=== PATIENT | female | born 1955 | race Caucasian/White ===

== ENCOUNTER 2017-08-27 08:26 | Outpatient (CLI) | payer OTHER ==
[~2017-08-27 08:26] MED LIST: PERCOCET 5/3251 TAB PO
== END 2017-08-27 08:39 | disposition home or self-care (01) ==
LOC: LAB 08:26
DX: Z80.3 Family history of malignant neoplasm of breast (principal); D69.2 Other nonthrombocytopenic purpura; I10 Essential (primary) hypertension; E03.8 Other specified hypothyroidism; E78.2 Mixed hyperlipidemia; M79.7 Fibromyalgia; G62.9 Polyneuropathy, unspecified; D50.8 Other iron deficiency anemias; D51.8 Other vitamin B12 deficiency anemias; E06.3 Autoimmune thyroiditis; D51.0 Vitamin B12 deficiency anemia due to intrinsic factor deficiency; D51.1 Vitamin B12 deficiency anemia due to selective vitamin B12 malabsorption with proteinuria

== ENCOUNTER 2018-02-26 10:30 | Inpatient (IN) | payer OTHER ==
[~2018-02-26] VITALS: Ht 160 cm; Wt 111.6 kg
[2018-02-26] MEDS ORDERED: GABAPENTIN800 MG PO (14:00)
[2018-02-26] MEDS ORDERED: METFORMIN HCL1000 M1 PO (14:00)
[2018-02-26] MEDS ORDERED: PROCARDIA PO (14:01)
[2018-02-26] MEDS ORDERED: GLIPIZIDE ER5 MG PO (14:01)
[2018-02-26] MEDS ORDERED: ZOCOR20 MG PO (14:02)
[2018-02-26] MEDS ORDERED: LOSARTAN-HCTZ1 EAC2 PO (14:02)
[2018-02-26] MEDS ORDERED: EZETIMIBE PO (14:02)
[2018-02-26] MEDS ORDERED: CYMBALTA60 MG PO (14:03)
[2018-02-26] MEDS ORDERED: JANUVIA50 MG PO (14:03)
[2018-02-26] MEDS ORDERED: LYRICA PO (14:04)
[2018-02-26] MEDS ORDERED: VIT D (14:04)
[2018-02-26] MEDS ORDERED: MIRAPEX0.25 MG PO (14:04)
[2018-02-26] MEDS ORDERED: PODIAPN CAPSUL1 EACH PO (14:05)
[2018-02-26] MEDS ORDERED: ULTRAM50 MG PO (14:05)
[2018-03-05] MEDS ORDERED: CURCUMIN1 GM (11:28)
[2018-03-05] MEDS ORDERED: GINGER ROOT1 GM (11:28)
== END 2018-03-07 15:50 | DRG 470 ==
LOC: O/R 03-04 09:32 → SURH 03-04 09:32 → RECOVERY 03-04 10:00 → SURH 03-04 21:38
PROVIDERS: Orthopaedic Surgery
PROC: 3E0F7GC Introduction of Other Therapeutic Substance into Respiratory Tract, Via Natural or Artificial Opening (ICD-10-PCS; 2018-03-04)
PROC: 0SRB0JZ Replacement of Left Hip Joint with Synthetic Substitute, Open Approach (ICD-10-PCS; principal; 2018-03-04 10:00)
DX: M16.12 Unilateral primary osteoarthritis, left hip (principal); D62 Acute posthemorrhagic anemia; I10 Essential (primary) hypertension; G47.33 Obstructive sleep apnea (adult) (pediatric); J45.20 Mild intermittent asthma, uncomplicated; E11.9 Type 2 diabetes mellitus without complications; E03.8 Other specified hypothyroidism; D69.59 Other secondary thrombocytopenia

== ENCOUNTER 2020-01-16 11:38 | Outpatient (CLI) | payer OTHER ==
[~2020-01-16 11:38] MED LIST changes: +CURCUMIN1 GM; +CYMBALTA60 MG PO; +EZETIMIBE PO; +GABAPENTIN800 MG PO; +GINGER ROOT1 GM; +GLIPIZIDE ER5 MG PO; +JANUVIA50 MG PO; +LOSARTAN-HCTZ1 EAC2 PO; +LYRICA PO; +METFORMIN HCL1000 M1 PO; +MIRAPEX0.25 MG PO; +PODIAPN CAPSUL1 EACH PO; +PROCARDIA PO; +ULTRAM50 MG PO; +VIT D; +ZOCOR20 MG PO
== END 2020-01-16 15:43 | disposition home or self-care (01) ==
LOC: LAB 11:38
PROVIDERS: ATTEND Internal Medicine Hematology & Oncology
DX: D50.8 Other iron deficiency anemias (principal); I10 Essential (primary) hypertension; D55.0 Anemia due to glucose-6-phosphate dehydrogenase [G6PD] deficiency; D63.1 Anemia in chronic kidney disease; D68.8 Other specified coagulation defects; D69.1 Qualitative platelet defects; C50.919 Malignant neoplasm of unspecified site of unspecified female breast; R97.8 Other abnormal tumor markers; R19.5 Other fecal abnormalities; Z80.3 Family history of malignant neoplasm of breast; D51.3 Other dietary vitamin B12 deficiency anemia; D69.2 Other nonthrombocytopenic purpura; G62.89 Other specified polyneuropathies; D51.1 Vitamin B12 deficiency anemia due to selective vitamin B12 malabsorption with proteinuria; M79.7 Fibromyalgia; E03.8 Other specified hypothyroidism

== ENCOUNTER 2020-03-11 09:33 | Outpatient (CLI) | payer OTHER | END 2020-03-11 09:40 | disposition home or self-care (01) | LOC: LAB 09:33 | PROVIDERS: ATTEND Internal Medicine Hematology & Oncology | DX: C25.9 Malignant neoplasm of pancreas, unspecified (principal); R97.8 Other abnormal tumor markers; C56.9 Malignant neoplasm of unspecified ovary; R97.1 Elevated cancer antigen 125 [CA 125]; R97.0 Elevated carcinoembryonic antigen [CEA]; N39.0 Urinary tract infection, site not specified; Z80.3 Family history of malignant neoplasm of breast; D50.8 Other iron deficiency anemias; D51.3 Other dietary vitamin B12 deficiency anemia; D69.2 Other nonthrombocytopenic purpura; D51.1 Vitamin B12 deficiency anemia due to selective vitamin B12 malabsorption with proteinuria; I10 Essential (primary) hypertension; E78.2 Mixed hyperlipidemia; M79.7 Fibromyalgia; E03.8 Other specified hypothyroidism ==

== ENCOUNTER 2020-04-01 09:53 | Outpatient (CLI) | payer OTHER | END 2020-04-01 09:58 | disposition home or self-care (01) | LOC: LAB 09:53 | PROVIDERS: ATTEND Internal Medicine Hematology & Oncology | DX: E78.49 Other hyperlipidemia (principal); D64.89 Other specified anemias; R10.84 Generalized abdominal pain; E11.9 Type 2 diabetes mellitus without complications; D50.8 Other iron deficiency anemias; I10 Essential (primary) hypertension; Z80.3 Family history of malignant neoplasm of breast; D51.3 Other dietary vitamin B12 deficiency anemia; D69.2 Other nonthrombocytopenic purpura; G62.89 Other specified polyneuropathies; D51.1 Vitamin B12 deficiency anemia due to selective vitamin B12 malabsorption with proteinuria; M79.7 Fibromyalgia; E03.8 Other specified hypothyroidism; R97.0 Elevated carcinoembryonic antigen [CEA] ==

== ENCOUNTER → 2020-04-11 | Outpatient (CLI) | payer OTHER | END | disposition home or self-care (01) | LOC: MRI 07:15 | PROVIDERS: ATTEND Internal Medicine Hematology & Oncology | DX: K74.69 Other cirrhosis of liver (principal); R16.1 Splenomegaly, not elsewhere classified; D50.8 Other iron deficiency anemias; D51.3 Other dietary vitamin B12 deficiency anemia; Z80.3 Family history of malignant neoplasm of breast; D69.2 Other nonthrombocytopenic purpura; G62.89 Other specified polyneuropathies; D51.1 Vitamin B12 deficiency anemia due to selective vitamin B12 malabsorption with proteinuria; I10 Essential (primary) hypertension; E78.2 Mixed hyperlipidemia; M79.7 Fibromyalgia; E03.8 Other specified hypothyroidism; R97.0 Elevated carcinoembryonic antigen [CEA] | CPT/HCPCS: 74183; A9575; 74182 ==

== ENCOUNTER → 2020-05-18 08:44 | Outpatient (CLI) | payer OTHER | END | disposition home or self-care (01) | LOC: LAB 08:44 | PROVIDERS: ATTEND Internal Medicine Geriatric Medicine | DX: D50.8 Other iron deficiency anemias (principal); E03.8 Other specified hypothyroidism; E78.2 Mixed hyperlipidemia; I11.9 Hypertensive heart disease without heart failure; E56.8 Deficiency of other vitamins; N39.0 Urinary tract infection, site not specified; Z12.11 Encounter for screening for malignant neoplasm of colon; E55.9 Vitamin D deficiency, unspecified; N19 Unspecified kidney failure; E11.9 Type 2 diabetes mellitus without complications; R80.8 Other proteinuria; C18.0 Malignant neoplasm of cecum; K92.1 Melena ==

== ENCOUNTER 2020-06-17 15:07 | Emergency (ER) | payer OTHER ==
[~2020-06-17] VITALS: Ht 160 cm; Wt 106.6 kg
[2020-06-17] MEDS ORDERED: PRAVASTATIN SOD40 MG PO (15:37)
[2020-06-17] MEDS ORDERED: PROTONIX40 MG PO (15:39)
[2020-06-17] MEDS ORDERED: PEPCID AC20 MG PO (15:39)
[2020-06-17] MEDS ORDERED: LYRICA150 MG PO (15:39)
[2020-06-17] MEDS ORDERED: LOSARTAN POTASS50 MG (15:39)
[2020-06-17] MEDS ORDERED: LEVOTHYROXINE25 MCG PO (15:40)
[2020-06-17] MEDS ORDERED: SINGULAIR 5MG5 MG (15:40)
[2020-06-17] MEDS ORDERED: NIFEDIPINE20 MG (15:41)
[2020-06-17] MEDS ORDERED: LANTUS SOL100 UNIT/1 (15:43)
== END 2020-06-17 21:44 | disposition home or self-care (01) ==
LOC: ER 15:07
DX: A90 Dengue fever [classical dengue] (principal); Z03.818 Encounter for observation for suspected exposure to other biological agents ruled out

== ENCOUNTER 2020-06-18 11:55 | Outpatient (CLI) | payer OTHER ==
[~2020-06-18 11:55] MED LIST changes: +LANTUS SOL100 UNIT/1; +LEVOTHYROXINE25 MCG PO; +LOSARTAN POTASS50 MG; +LYRICA150 MG PO; +NIFEDIPINE20 MG; +PEPCID AC20 MG PO; +PRAVASTATIN SOD40 MG PO; +PROTONIX40 MG PO; +SINGULAIR 5MG5 MG
== END 2020-06-18 12:05 | disposition home or self-care (01) ==
LOC: LAB 11:55
DX: K76.0 Fatty (change of) liver, not elsewhere classified (principal); A90 Dengue fever [classical dengue]; R74.01 Elevation of levels of liver transaminase levels; K76.6 Portal hypertension; K74.60 Unspecified cirrhosis of liver

== ENCOUNTER 2020-07-01 08:47 | Outpatient (CLI) | payer OTHER | END 2020-07-01 10:24 | disposition home or self-care (01) | LOC: NUCLEAR 08:47 | DX: T81.41XA Infection following a procedure, superficial incisional surgical site, initial encounter (principal); T84.84XA Pain due to internal orthopedic prosthetic devices, implants and grafts, initial encounter | CPT/HCPCS: 78315; A9503 ==

== ENCOUNTER 2020-07-01 09:45 | Outpatient (CLI) | payer OTHER | END 2020-07-01 09:53 | disposition HB | LOC: TOM 09:45 | DX: M21.752 Unequal limb length (acquired), left femur (principal) ==

== ENCOUNTER → 2020-07-29 | Outpatient (CLI) | payer OTHER | END | disposition home or self-care (01) | LOC: MAMO-SONO 10:45 | PROVIDERS: ATTEND Obstetrics & Gynecology | DX: N94.89 Other specified conditions associated with female genital organs and menstrual cycle (principal); N94.0 Mittelschmerz; R10.2 Pelvic and perineal pain ==

== ENCOUNTER 2020-08-02 07:44 | Outpatient (CLI) | payer OTHER | END 2020-08-02 07:50 | disposition home or self-care (01) | LOC: LAB 07:44 | PROVIDERS: ATTEND Internal Medicine Geriatric Medicine | DX: D50.8 Other iron deficiency anemias (principal); R79.89 Other specified abnormal findings of blood chemistry; I10 Essential (primary) hypertension; R74.02 Elevation of levels of lactic acid dehydrogenase [LDH]; K76.89 Other specified diseases of liver; D51.8 Other vitamin B12 deficiency anemias; C25.9 Malignant neoplasm of pancreas, unspecified; R97.8 Other abnormal tumor markers; R97.0 Elevated carcinoembryonic antigen [CEA]; R77.2 Abnormality of alphafetoprotein; Z80.3 Family history of malignant neoplasm of breast; D51.3 Other dietary vitamin B12 deficiency anemia; D69.2 Other nonthrombocytopenic purpura; D51.1 Vitamin B12 deficiency anemia due to selective vitamin B12 malabsorption with proteinuria; E78.2 Mixed hyperlipidemia; M79.7 Fibromyalgia; E03.8 Other specified hypothyroidism; T81.41XA Infection following a procedure, superficial incisional surgical site, initial encounter; C22.0 Liver cell carcinoma; I11.9 Hypertensive heart disease without heart failure; E56.8 Deficiency of other vitamins; N39.0 Urinary tract infection, site not specified; Z12.11 Encounter for screening for malignant neoplasm of colon; E55.9 Vitamin D deficiency, unspecified; N17.8 Other acute kidney failure; K92.1 Melena; C18.0 Malignant neoplasm of cecum; R80.8 Other proteinuria; E11.9 Type 2 diabetes mellitus without complications ==

== ENCOUNTER 2020-08-11 11:43 | Outpatient (CLI) | payer OTHER | END 2020-08-11 11:47 | disposition home or self-care (01) | LOC: LAB 11:43 | PROVIDERS: ATTEND Radiology Diagnostic Radiology | DX: N20.0 Calculus of kidney (principal) ==

== ENCOUNTER 2020-08-19 08:18 | Outpatient (CLI) | payer OTHER | END 2020-08-19 08:30 | disposition home or self-care (01) | LOC: RAD 08:18 → MRI 08:45 | PROVIDERS: ATTEND Obstetrics & Gynecology | DX: Z12.31 Encounter for screening mammogram for malignant neoplasm of breast (principal); Z87.898 Personal history of other specified conditions; N63.0 Unspecified lump in unspecified breast; C50.811 Malignant neoplasm of overlapping sites of right female breast; C50.812 Malignant neoplasm of overlapping sites of left female breast; N60.11 Diffuse cystic mastopathy of right breast; N60.12 Diffuse cystic mastopathy of left breast; N64.4 Mastodynia; N94.0 Mittelschmerz; R10.2 Pelvic and perineal pain; N94.89 Other specified conditions associated with female genital organs and menstrual cycle | CPT/HCPCS: 72197; 74183; 76641; 77067; A9575 ==

== ENCOUNTER 2020-10-18 10:57 | Outpatient (CLI) | payer OTHER | END 2020-10-18 10:59 | disposition home or self-care (01) | LOC: NUCLEAR 10:57 | DX: I73.9 Peripheral vascular disease, unspecified (principal); I82.409 Acute embolism and thrombosis of unspecified deep veins of unspecified lower extremity ==

== ENCOUNTER 2020-10-19 07:35 | Outpatient (CLI) | payer OTHER | END 2020-10-19 07:51 | disposition home or self-care (01) | LOC: SONOGRAMA 07:35 | PROVIDERS: ATTEND Internal Medicine Gastroenterology | DX: R74.01 Elevation of levels of liver transaminase levels (principal); K76.0 Fatty (change of) liver, not elsewhere classified; K76.6 Portal hypertension; K74.60 Unspecified cirrhosis of liver; I85.00 Esophageal varices without bleeding; M43.06 Spondylolysis, lumbar region; E11.40 Type 2 diabetes mellitus with diabetic neuropathy, unspecified; D47.2 Monoclonal gammopathy; E03.8 Other specified hypothyroidism; D51.0 Vitamin B12 deficiency anemia due to intrinsic factor deficiency; D51.8 Other vitamin B12 deficiency anemias; E83.42 Hypomagnesemia; G47.8 Other sleep disorders ==

== ENCOUNTER → 2020-10-19 08:53 | Outpatient (CLI) | payer OTHER | END | disposition home or self-care (01) | LOC: LAB 08:53 | DX: E11.65 Type 2 diabetes mellitus with hyperglycemia (principal); E78.2 Mixed hyperlipidemia; I10 Essential (primary) hypertension; C73 Malignant neoplasm of thyroid gland; E11.40 Type 2 diabetes mellitus with diabetic neuropathy, unspecified; D47.2 Monoclonal gammopathy; E03.8 Other specified hypothyroidism; D51.0 Vitamin B12 deficiency anemia due to intrinsic factor deficiency; D51.8 Other vitamin B12 deficiency anemias; E83.42 Hypomagnesemia; G72.89 Other specified myopathies; R74.01 Elevation of levels of liver transaminase levels; K76.0 Fatty (change of) liver, not elsewhere classified; K76.6 Portal hypertension; K74.60 Unspecified cirrhosis of liver; I85.00 Esophageal varices without bleeding ==

== ENCOUNTER 2020-10-19 11:03 | Outpatient (CLI) | payer OTHER | END 2020-10-19 11:04 | disposition home or self-care (01) | LOC: NUCLEAR 11:03 | DX: I73.9 Peripheral vascular disease, unspecified (principal); I82.409 Acute embolism and thrombosis of unspecified deep veins of unspecified lower extremity ==

== ENCOUNTER 2020-12-05 09:59 | Outpatient (CLI) | payer OTHER | END 2020-12-05 10:04 | disposition home or self-care (01) | LOC: MRI 09:59 | PROVIDERS: ATTEND Neuromusculoskeletal Medicine & OMM | DX: G30.9 Alzheimer's disease, unspecified (principal); I67.89 Other cerebrovascular disease; R41.3 Other amnesia | CPT/HCPCS: 70551 ==

== ENCOUNTER 2020-12-12 09:03 | Outpatient (CLI) | payer OTHER | END 2020-12-12 09:04 | disposition home or self-care (01) | LOC: LAB 09:03 → RAD 09:03 → LAB 09:04 | PROVIDERS: ATTEND Internal Medicine Geriatric Medicine | DX: D50.9 Iron deficiency anemia, unspecified (principal); M18.0 Bilateral primary osteoarthritis of first carpometacarpal joints; E03.9 Hypothyroidism, unspecified; E78.2 Mixed hyperlipidemia; I11.9 Hypertensive heart disease without heart failure; E56.8 Deficiency of other vitamins; N39.0 Urinary tract infection, site not specified; R19.5 Other fecal abnormalities; E55.9 Vitamin D deficiency, unspecified; R80.9 Proteinuria, unspecified; C18.9 Malignant neoplasm of colon, unspecified; K92.0 Hematemesis ==

== ENCOUNTER 2020-12-17 13:42 | Emergency (ER) | payer OTHER ==
[~2020-12-17] VITALS: Ht 160 cm; Wt 117.9 kg
[2020-12-17] MEDS ORDERED: GLIMEPIRIDE2 MG (14:16)
[2020-12-17] MEDS ORDERED: REFRESH OPTIVE10 ML (14:17)
[2020-12-17] MEDS ORDERED: OLOPATADINE H30.5 GM (14:17)
[2020-12-17] MEDS ORDERED: ATIVAN1 M1 (14:18)
[2020-12-17] MEDS ORDERED: PRAMIPEXOLE E2.25 MG (14:19)
[2020-12-17] MEDS ORDERED: TRULICITY1.5 MG/0.5 (14:19)
[2020-12-17] MEDS ORDERED: NORVASC10 MG (14:20)
[2020-12-17] MEDS ORDERED: XIGDUO XR 5 MG1 EAC1 (14:20)
[2020-12-17] MEDS ORDERED: BENICAR HCT 401 EACH (14:20)
== END 2020-12-17 20:53 | disposition home or self-care (01) ==
LOC: ER 13:42
DX: J45.998 Other asthma (principal); B34.9 Viral infection, unspecified; Z11.52 Encounter for screening for COVID-19

== ENCOUNTER 2020-12-20 02:53 | Emergency (ER) | payer OTHER ==
[~2020-12-20] VITALS: Ht 172.7 cm; Wt 117.9 kg
[~2020-12-20 02:53] MED LIST changes: +ATIVAN1 M1; +BENICAR HCT 401 EACH; +GLIMEPIRIDE2 MG; +NORVASC10 MG; +OLOPATADINE H30.5 GM; +PRAMIPEXOLE E2.25 MG; +REFRESH OPTIVE10 ML; +TRULICITY1.5 MG/0.5; +XIGDUO XR 5 MG1 EAC1
== END 2020-12-20 15:53 | disposition home or self-care (01) ==
LOC: ER 02:53
DX: R07.89 Other chest pain (principal); J45.998 Other asthma; J32.8 Other chronic sinusitis

== ENCOUNTER → 2021-01-10 07:32 | Outpatient (CLI) | payer OTHER | END | disposition home or self-care (01) | LOC: RAD 07:32 → LAB 07:32 | DX: M17.0 Bilateral primary osteoarthritis of knee (principal); M16.0 Bilateral primary osteoarthritis of hip; E11.65 Type 2 diabetes mellitus with hyperglycemia; E78.2 Mixed hyperlipidemia; I10 Essential (primary) hypertension ==

== ENCOUNTER 2021-04-06 09:26 | Outpatient (CLI) | payer OTHER | END 2021-04-06 14:20 | disposition home or self-care (01) | LOC: SONOGRAMA 09:26 | DX: R10.84 Generalized abdominal pain (principal); K70.30 Alcoholic cirrhosis of liver without ascites ==

== ENCOUNTER 2021-04-19 16:10 | Outpatient (CLI) | payer OTHER | END 2021-04-19 16:16 | disposition home or self-care (01) | LOC: RAD 16:10 | PROVIDERS: ATTEND Orthopaedic Surgery | DX: M75.121 Complete rotator cuff tear or rupture of right shoulder, not specified as traumatic (principal); M25.511 Pain in right shoulder ==

== ENCOUNTER → 2021-05-29 | Emergency (ER) | payer OTHER ==
[~2021-05-29] MED LIST changes: +PROAIR HFA8.5 GM IH
== END | disposition left against medical advice (07) ==
LOC: ER 21:58
DX: Z53.20 Procedure and treatment not carried out because of patient's decision for unspecified reasons (principal)

== ENCOUNTER 2021-06-27 08:34 | Outpatient (CLI) | payer OTHER | END 2021-06-27 15:00 | disposition home or self-care (01) | LOC: LAB 08:34 | PROVIDERS: ATTEND Internal Medicine Hematology & Oncology | DX: D68.8 Other specified coagulation defects (principal); D69.1 Qualitative platelet defects; Z80.3 Family history of malignant neoplasm of breast; D50.8 Other iron deficiency anemias; D51.3 Other dietary vitamin B12 deficiency anemia; D69.2 Other nonthrombocytopenic purpura; K74.69 Other cirrhosis of liver; G62.89 Other specified polyneuropathies; D51.1 Vitamin B12 deficiency anemia due to selective vitamin B12 malabsorption with proteinuria; I10 Essential (primary) hypertension; E78.2 Mixed hyperlipidemia; M79.7 Fibromyalgia; E03.8 Other specified hypothyroidism; R97.0 Elevated carcinoembryonic antigen [CEA] ==

== ENCOUNTER 2021-06-29 06:43 | Day surgery (SDC) | payer OTHER | END 2021-06-29 19:30 | disposition home or self-care (01) | LOC: CIR.AMB 06:43 | PROVIDERS: ATTEND Orthopaedic Surgery | DX: M75.121 Complete rotator cuff tear or rupture of right shoulder, not specified as traumatic (principal); M75.21 Bicipital tendinitis, right shoulder; Z20.822 Contact with and (suspected) exposure to COVID-19 ==

== ENCOUNTER 2021-07-04 08:14 | Outpatient (CLI) | payer OTHER | END 2021-07-04 15:00 | disposition home or self-care (01) | LOC: LAB 08:14 | PROVIDERS: ATTEND Internal Medicine Hematology & Oncology | DX: D50.8 Other iron deficiency anemias (principal); D51.3 Other dietary vitamin B12 deficiency anemia; D69.2 Other nonthrombocytopenic purpura; K74.69 Other cirrhosis of liver; G62.89 Other specified polyneuropathies; D51.1 Vitamin B12 deficiency anemia due to selective vitamin B12 malabsorption with proteinuria; I10 Essential (primary) hypertension; E78.2 Mixed hyperlipidemia; M79.7 Fibromyalgia; E03.8 Other specified hypothyroidism; R97.0 Elevated carcinoembryonic antigen [CEA]; Z80.3 Family history of malignant neoplasm of breast; R79.89 Other specified abnormal findings of blood chemistry; R74.02 Elevation of levels of lactic acid dehydrogenase [LDH]; K76.89 Other specified diseases of liver; D51.8 Other vitamin B12 deficiency anemias; C25.8 Malignant neoplasm of overlapping sites of pancreas; R97.8 Other abnormal tumor markers; R77.2 Abnormality of alphafetoprotein ==

== ENCOUNTER 2021-10-31 12:35 | Outpatient (CLI) | payer OTHER | END 2021-10-31 12:52 | disposition home or self-care (01) | LOC: MAMO-SONO 12:35 | PROVIDERS: ATTEND Obstetrics & Gynecology | DX: N63.0 Unspecified lump in unspecified breast (principal); N64.59 Other signs and symptoms in breast; N64.9 Disorder of breast, unspecified; R10.2 Pelvic and perineal pain ==

== ENCOUNTER 2022-02-26 10:27 | Outpatient (CLI) | payer OTHER ==
[~2022-02-26 10:27] MED LIST changes: +BENICAR40 MG PO; +FOLIVANE-F CAP1 EACH PO; +GLIPIZIDE XL5 MG PO; +HORIZANT600 MG PO; +LEVOFLOXACIN500 MG PO; +LYRICA200 MG PO; +NORVASC10 MG PO; +PRAMIPEXOLE E2.25 MG PO; +PYRIDIUM200 MG PO; +SINGULAIR10 MG PO; +ZETIA10 MG PO
== END 2022-02-26 10:34 | disposition home or self-care (01) ==
LOC: RAD 10:27
PROVIDERS: ATTEND Orthopaedic Surgery
DX: M54.59 Other low back pain (principal)

== ENCOUNTER 2022-02-26 11:43 | Outpatient (CLI) | payer OTHER | END 2022-02-26 11:44 | disposition home or self-care (01) | LOC: NUCLEAR 11:43 | PROVIDERS: ATTEND Internal Medicine Rheumatology | DX: M81.0 Age-related osteoporosis without current pathological fracture (principal); Z88.0 Allergy status to penicillin; Z88.6 Allergy status to analgesic agent; Z91.018 Allergy to other foods ==

== ENCOUNTER 2022-04-06 07:45 | Outpatient (CLI) | payer OTHER | END 2022-04-06 07:53 | disposition home or self-care (01) | LOC: LAB 07:45 | PROVIDERS: ATTEND Internal Medicine Hematology & Oncology | DX: D50.8 Other iron deficiency anemias (principal); R79.9 Abnormal finding of blood chemistry, unspecified; R74.02 Elevation of levels of lactic acid dehydrogenase [LDH]; K76.89 Other specified diseases of liver; D51.8 Other vitamin B12 deficiency anemias; D68.8 Other specified coagulation defects; D69.1 Qualitative platelet defects; C25.9 Malignant neoplasm of pancreas, unspecified; R97.8 Other abnormal tumor markers; R77.2 Abnormality of alphafetoprotein; Z80.3 Family history of malignant neoplasm of breast; D51.3 Other dietary vitamin B12 deficiency anemia; D69.2 Other nonthrombocytopenic purpura; K74.69 Other cirrhosis of liver; G62.9 Polyneuropathy, unspecified; D51.1 Vitamin B12 deficiency anemia due to selective vitamin B12 malabsorption with proteinuria; E78.2 Mixed hyperlipidemia; M79.7 Fibromyalgia; E03.8 Other specified hypothyroidism; R97.0 Elevated carcinoembryonic antigen [CEA]; E11.21 Type 2 diabetes mellitus with diabetic nephropathy; R80.9 Proteinuria, unspecified; D50.9 Iron deficiency anemia, unspecified; E03.9 Hypothyroidism, unspecified; I11.9 Hypertensive heart disease without heart failure; E56.8 Deficiency of other vitamins; N39.0 Urinary tract infection, site not specified; R19.5 Other fecal abnormalities; E55.9 Vitamin D deficiency, unspecified; N18.2 Chronic kidney disease, stage 2 (mild); Z12.11 Encounter for screening for malignant neoplasm of colon ==

== ENCOUNTER 2022-05-01 08:55 | Outpatient (CLI) | payer OTHER | END 2022-05-01 08:56 | disposition home or self-care (01) | LOC: LAB 08:55 | DX: R79.89 Other specified abnormal findings of blood chemistry (principal) ==

== ENCOUNTER 2022-05-01 09:27 | Outpatient (CLI) | payer OTHER | END 2022-05-01 09:37 | disposition home or self-care (01) | LOC: SONOGRAMA 09:27 | DX: K70.30 Alcoholic cirrhosis of liver without ascites (principal) ==

== ENCOUNTER 2022-05-04 07:33 | Outpatient (CLI) | payer OTHER | END 2022-05-04 07:35 | disposition home or self-care (01) | LOC: LAB 07:33 | PROVIDERS: ATTEND Internal Medicine Geriatric Medicine | DX: K76.9 Liver disease, unspecified (principal); J06.9 Acute upper respiratory infection, unspecified; D69.6 Thrombocytopenia, unspecified; D72.819 Decreased white blood cell count, unspecified ==

== ENCOUNTER 2022-10-09 08:37 | Outpatient (CLI) | payer OTHER | END 2022-10-09 08:38 | disposition home or self-care (01) | LOC: LAB 08:37 | PROVIDERS: ATTEND Internal Medicine Geriatric Medicine | DX: D50.9 Iron deficiency anemia, unspecified (principal); E03.9 Hypothyroidism, unspecified; E78.2 Mixed hyperlipidemia; I11.9 Hypertensive heart disease without heart failure; E56.8 Deficiency of other vitamins; Z12.11 Encounter for screening for malignant neoplasm of colon; R19.5 Other fecal abnormalities; E55.9 Vitamin D deficiency, unspecified; R80.9 Proteinuria, unspecified; D50.8 Other iron deficiency anemias; R79.9 Abnormal finding of blood chemistry, unspecified; R74.02 Elevation of levels of lactic acid dehydrogenase [LDH]; K76.89 Other specified diseases of liver; D68.8 Other specified coagulation defects; D69.1 Qualitative platelet defects; C25.9 Malignant neoplasm of pancreas, unspecified; R97.8 Other abnormal tumor markers; R97.0 Elevated carcinoembryonic antigen [CEA]; R77.2 Abnormality of alphafetoprotein; Z80.3 Family history of malignant neoplasm of breast; D51.3 Other dietary vitamin B12 deficiency anemia; D69.2 Other nonthrombocytopenic purpura; K74.69 Other cirrhosis of liver; G62.9 Polyneuropathy, unspecified; D51.1 Vitamin B12 deficiency anemia due to selective vitamin B12 malabsorption with proteinuria; M79.7 Fibromyalgia; E03.8 Other specified hypothyroidism; N18.2 Chronic kidney disease, stage 2 (mild); E11.22 Type 2 diabetes mellitus with diabetic chronic kidney disease ==

== ENCOUNTER 2022-10-20 15:56 | Emergency (ER) | payer OTHER ==
[~2022-10-20] VITALS: Ht 160 cm; Wt 122.5 kg
== END 2022-10-20 17:20 | disposition home or self-care (01) ==
LOC: ER 15:56
DX: U07.1 COVID-19 (principal); Z88.0 Allergy status to penicillin; Z88.6 Allergy status to analgesic agent; Z91.018 Allergy to other foods

== ENCOUNTER 2022-11-08 08:12 | Outpatient (CLI) | payer OTHER | END 2022-11-08 08:14 | disposition home or self-care (01) | LOC: LAB 08:12 | PROVIDERS: ATTEND Internal Medicine Geriatric Medicine | DX: N39.0 Urinary tract infection, site not specified (principal) ==

== ENCOUNTER → 2022-11-08 | Outpatient (CLI) | payer OTHER | END | disposition home or self-care (01) | LOC: MAMO-SONO 08:46 | PROVIDERS: ATTEND Obstetrics & Gynecology | DX: N94.0 Mittelschmerz (principal); R10.2 Pelvic and perineal pain; N94.89 Other specified conditions associated with female genital organs and menstrual cycle; N63.0 Unspecified lump in unspecified breast; N64.59 Other signs and symptoms in breast; N64.9 Disorder of breast, unspecified; Z12.31 Encounter for screening mammogram for malignant neoplasm of breast ==

== ENCOUNTER → 2023-01-19 07:55 | Outpatient (CLI) | payer OTHER | END | disposition home or self-care (01) | LOC: LAB 07:55 | PROVIDERS: ATTEND Internal Medicine Geriatric Medicine | DX: D50.9 Iron deficiency anemia, unspecified (principal); E03.9 Hypothyroidism, unspecified; E78.2 Mixed hyperlipidemia; I11.9 Hypertensive heart disease without heart failure; E56.8 Deficiency of other vitamins; N39.0 Urinary tract infection, site not specified; Z12.11 Encounter for screening for malignant neoplasm of colon; R19.5 Other fecal abnormalities; E55.9 Vitamin D deficiency, unspecified; N19 Unspecified kidney failure; E11.9 Type 2 diabetes mellitus without complications ==

== ENCOUNTER 2023-01-23 08:01 | Outpatient (CLI) | payer OTHER | END 2023-01-23 08:03 | disposition home or self-care (01) | LOC: LAB 08:01 | PROVIDERS: ATTEND Internal Medicine Hematology & Oncology | DX: D64.9 Anemia, unspecified (principal); N39.0 Urinary tract infection, site not specified; R10.9 Unspecified abdominal pain; Z79.01 Long term (current) use of anticoagulants; D50.8 Other iron deficiency anemias; D69.6 Thrombocytopenia, unspecified; D68.8 Other specified coagulation defects; D69.1 Qualitative platelet defects; I10 Essential (primary) hypertension; Z80.3 Family history of malignant neoplasm of breast; D51.3 Other dietary vitamin B12 deficiency anemia; D69.2 Other nonthrombocytopenic purpura; K74.69 Other cirrhosis of liver; G62.9 Polyneuropathy, unspecified; D51.1 Vitamin B12 deficiency anemia due to selective vitamin B12 malabsorption with proteinuria; E78.2 Mixed hyperlipidemia; M79.7 Fibromyalgia; E03.8 Other specified hypothyroidism; R97.0 Elevated carcinoembryonic antigen [CEA] ==

== ENCOUNTER 2023-01-23 08:37 | Outpatient (CLI) | payer OTHER | END 2023-01-23 08:41 | disposition home or self-care (01) | LOC: RAD 08:37 | PROVIDERS: ATTEND Internal Medicine | DX: Z01.811 Encounter for preprocedural respiratory examination (principal) ==

== ENCOUNTER 2023-04-20 08:27 | Outpatient (CLI) | payer OTHER ==
[2023-04-20 10:18] LABS: URINE APPEARANCE Clear; URINE BILIRRUBIN Negative (NEGATIVE); URINE BLOOD Negative; URINE COLOR Yellow; URINE GLUCOSE Negative (NEGATIVE); URINE LEUKOCYTE Trace; URINE NITRATE Negative; URINE PROTEIN Negative (NEGATIVE)
[2023-04-20 10:48] LABS: URINE BACTERIA FEW; URINE MUCUS SCANT
[2023-04-20 10:49] LABS: URINE RBC 0-3 /HPF
[2023-04-20 10:57] LABS: HEMATOCRIT 36.3 % (36.0-45.00); HEMOGLOBIN 12.3 g/dL (12.0-15.00); MEAN CELL VOLUME 90.6 fL (80.00-100.00); MEAN CORPUSCULAR HEMOGLOBIN 30.7 pg (27.00-32.0); MEAN CORPUSCULAR HGB CONC 33.9 g/dl (32.0-36.0); RED CELL DISTRIBUTION WIDTH 14.5 % (11.5-14.5)
[2023-04-20 11:34] LABS: % SATURACION 29.5 % (15-50); ALBUMIN 3.3 gm/dL (3.4-5.0); BILIRUBIN TOTAL 1.01 mg/dL (0.3-1.2); CALCIUM 9.1 mg/dL (8.5-10.1); CHOL HDL RATIO 2.1 (0-5.0); CREATININE SERUM 1.05 mg/dL (0.55-1.02); FERRITIN 83.2 NG/ML (8-252); GFR 52.27; GLOBULINA 2.9 G/DL (2.4-3.5); POTASSIUM 4.01 mEq/L (3.5-5.1); TOTAL PROTEIN 6.2 gm/dL (6.4-8.2); TSH 1.3 uIU/mL (0.358-3.74)
[2023-04-20 12:23] LABS: COL EPI 98 SECONDS (82-175)
[2023-04-20 13:05] LABS: PLATELET COUNT 55 K/uL (150-450)
[2023-04-22 15:20] LABS: FOLIC ACID 19.8 ng/ml (4.78-20); VITAMIN D3 25 HYDROXY 42.45 ng/ml (30-120)
== END 2023-04-20 08:31 | disposition home or self-care (01) ==
LOC: LAB 08:27
PROVIDERS: ATTEND Internal Medicine Geriatric Medicine
DX: D50.9 Iron deficiency anemia, unspecified (principal); E03.9 Hypothyroidism, unspecified; E78.2 Mixed hyperlipidemia; I11.9 Hypertensive heart disease without heart failure; E56.8 Deficiency of other vitamins; N39.0 Urinary tract infection, site not specified; Z12.11 Encounter for screening for malignant neoplasm of colon; R19.5 Other fecal abnormalities; E55.9 Vitamin D deficiency, unspecified; N19 Unspecified kidney failure; E11.65 Type 2 diabetes mellitus with hyperglycemia; D50.8 Other iron deficiency anemias; R79.9 Abnormal finding of blood chemistry, unspecified; R74.02 Elevation of levels of lactic acid dehydrogenase [LDH]; K76.89 Other specified diseases of liver; D68.8 Other specified coagulation defects; D69.1 Qualitative platelet defects; C25.9 Malignant neoplasm of pancreas, unspecified; R97.8 Other abnormal tumor markers; R97.0 Elevated carcinoembryonic antigen [CEA]; R77.2 Abnormality of alphafetoprotein; Z80.3 Family history of malignant neoplasm of breast; D51.3 Other dietary vitamin B12 deficiency anemia; D69.2 Other nonthrombocytopenic purpura; K74.69 Other cirrhosis of liver; G62.9 Polyneuropathy, unspecified; D51.1 Vitamin B12 deficiency anemia due to selective vitamin B12 malabsorption with proteinuria; M79.7 Fibromyalgia; E03.8 Other specified hypothyroidism

== ENCOUNTER 2023-07-04 12:33 | Emergency (ER) | payer OTHER ==
[~2023-07-04] VITALS: Ht 160 cm; Wt 114.3 kg
[2023-07-04 17:03] LABS: HEMATOCRIT 38.6 % (36.0-45.00); HEMOGLOBIN 12.9 g/dL (12.0-15.00); MEAN CELL VOLUME 92.6 fL (80.00-100.00); MEAN CORPUSCULAR HGB CONC 33.4 g/dl (32.0-36.0); RED BLOOD COUNT 4.17 M/uL (4.00-6.00); RED CELL DISTRIBUTION WIDTH 14.7 % (11.5-14.5)
[2023-07-04 17:20] LABS: PLATELET COUNT 65 K/uL (150-450)
[2023-07-04] MEDS ORDERED: DIABETIC TUSSI118 M3 PO (18:36)
[2023-07-04] MEDS ORDERED: XOPENEX CO1.25 MG/0. IH (18:36)
[2023-07-04] MEDS ORDERED: LEVOFLOXACIN500 MG PO (18:36)
[2023-07-04] MEDS ORDERED: BUDESONIDE0.5 MG/2 M IH (18:36)
== END 2023-07-04 19:00 | disposition home or self-care (01) ==
LOC: ER 12:34
PROVIDERS: Nurse Practitioner Family
DX: U07.1 COVID-19 (principal); J00 Acute nasopharyngitis [common cold]; I49.8 Other specified cardiac arrhythmias; Z88.6 Allergy status to analgesic agent; Z91.018 Allergy to other foods
CPT/HCPCS: 36415; 71046; 96365; 99284; J3490

== ENCOUNTER 2023-12-29 09:42 | Emergency (ER) | payer OTHER ==
[~2023-12-29] VITALS: Ht 160 cm; Wt 117.0 kg
[~2023-12-29 09:42] MED LIST changes: +BUDESONIDE0.5 MG/2 M IH; +DIABETIC TUSSI118 M3 PO; +XOPENEX CO1.25 MG/0. IH
[2023-12-29] MEDS ORDERED: OZEMPIC2 MG/0.75 SQ (09:52)
[2023-12-29] MEDS ORDERED: PEPCID AC20 MG (09:53)
[2023-12-29] MEDS ORDERED: PRE PROTEIN1 EACH PO (09:53)
[2023-12-29] MEDS ORDERED: BREO ELLIPTA 21 EACH IH (09:54)
[2023-12-29] MEDS ORDERED: LANTUS SOL100 UNIT/1 SQ (09:54)
[2023-12-29] MEDS ORDERED: ROSADAN45 G1 (09:55)
[2023-12-29] MEDS ORDERED: PROCTOCREAM-HC30 GM (09:56)
[2023-12-29] MEDS ORDERED: TRAMADOL HCL E100 M1 (09:56)
[2023-12-29] MEDS ORDERED: MEPERIDINE HCL/PF 50 MG/ML VIAL IM STA (10:22)
[2023-12-29] MEDS ORDERED: PROMETHAZINE HCL 25 MG/ML AMPUL IM STA (10:23)
[2023-12-29 10:35] LABS: PH,URINE 5.5 (5.0-8.0); URINE APPEARANCE Turbid; URINE BILIRRUBIN Small (NEGATIVE); URINE BLOOD Large; URINE COLOR Orange; URINE GLUCOSE Negative (NEGATIVE); URINE LEUKOCYTE Large; URINE NITRATE Positive
[2023-12-29 10:39] LABS: URINE EPITHELIAL CELLS 73.3 uL (0.0-38.8); URINE RBC 3169.6 uL (0.0-20.8)
[2023-12-29 10:52] LABS: HEMATOCRIT 35.7 % (36.0-45.00); HEMOGLOBIN 12.1 g/dL (12.0-15.00); MEAN CELL VOLUME 91.3 fL (80.00-100.00); MEAN CORPUSCULAR HEMOGLOBIN 30.8 pg (27.00-32.0); MEAN CORPUSCULAR HGB CONC 33.8 g/dl (32.0-36.0); RED BLOOD COUNT 3.91 M/uL (4.00-6.00); RED CELL DISTRIBUTION WIDTH 14.1 % (11.5-14.5)
[2023-12-29 10:55] LABS: PLATELET COUNT 71 K/uL (150-450)
[2023-12-29 11:01] LABS: BILIRUBIN TOTAL 0.68 mg/dL (0.3-1.2); BILIRUBIN,CONJUGATED 0.21 mg/dL (0.0-0.2); BILIRUBIN,UNCONJUGATED 0.47 mg/dL (0.0-0.6); CALCIUM 9.3 mg/dL (8.5-10.1); CREATININE SERUM 1.15 mg/dL (0.55-1.02); GFR 46.92; POTASSIUM 4.16 mEq/L (3.5-5.1); TOTAL PROTEIN 6.5 gm/dL (6.4-8.2)
[2023-12-29 11:22] LABS: URINE BACTERIA > 9821.5 uL (0.0-1933); URINE PROTEIN 300 (NEGATIVE); URINE WBC > 5548.3 uL (0.0-23.2)
== END 2023-12-29 12:38 | disposition home or self-care (01) ==
LOC: ER 09:43
PROVIDERS: General Practice
DX: N39.0 Urinary tract infection, site not specified (principal); K43.9 Ventral hernia without obstruction or gangrene; K74.60 Unspecified cirrhosis of liver; R16.1 Splenomegaly, not elsewhere classified; E11.9 Type 2 diabetes mellitus without complications; Z79.84 Long term (current) use of oral hypoglycemic drugs; I10 Essential (primary) hypertension; Z88.0 Allergy status to penicillin; Z88.6 Allergy status to analgesic agent; Z91.018 Allergy to other foods
CPT/HCPCS: 36415; 74176; 96372; 99283; J2250; J3490

== ENCOUNTER → 2024-01-02 11:37 | Outpatient (CLI) | payer OTHER ==
[~2024-01-02 11:37] MED LIST changes: +BREO ELLIPTA 21 EACH IH; +LANTUS SOL100 UNIT/1 SQ; +OZEMPIC2 MG/0.75 SQ; +PEPCID AC20 MG; +PRE PROTEIN1 EACH PO; +PROCTOCREAM-HC30 GM; +ROSADAN45 G1; +TRAMADOL HCL E100 M1
[2024-01-02 12:14] LABS: PH,URINE 6.5 (5.0-8.0); URINE APPEARANCE Cloudy; URINE BILIRRUBIN Small (NEGATIVE); URINE BLOOD Negative; URINE COLOR Dark Yellow; URINE GLUCOSE Negative (NEGATIVE); URINE LEUKOCYTE Moderate; URINE NITRATE Negative; URINE PROTEIN 30 (NEGATIVE)
[2024-01-02 12:18] LABS: URINE BACTERIA 787.4 uL (0.0-1933); URINE EPITHELIAL CELLS 30.3 uL (0.0-38.8); URINE RBC 58.4 uL (0.0-20.8); URINE WBC 1102.9 uL (0.0-23.2)
== END | disposition home or self-care (01) ==
LOC: LAB 11:37
PROVIDERS: ATTEND Internal Medicine Nephrology
DX: N30.00 Acute cystitis without hematuria (principal)

== ENCOUNTER 2024-04-29 08:34 | Outpatient (CLI) | payer OTHER ==
[2024-04-29 09:51] LABS: HEMATOCRIT 36.1 % (36.0-45.00); HEMOGLOBIN 12.4 g/dL (12.0-15.00); MEAN CELL VOLUME 91.1 fL (80.00-100.00); MEAN CORPUSCULAR HEMOGLOBIN 31.3 pg (27.00-32.0); MEAN CORPUSCULAR HGB CONC 34.3 g/dl (32.0-36.0); RED BLOOD COUNT 3.96 M/uL (4.00-6.00); RED CELL DISTRIBUTION WIDTH 15.6 % (11.5-14.5)
[2024-04-29 10:02] LABS: COL EPI 90 SECONDS (82-175)
[2024-04-29 10:08] LABS: PLATELET COUNT 67 K/uL (150-450)
[2024-04-29 10:12] LABS: INR 1.03; PARTIAL THROMBOPLASTIN TIME 25.9 SECONDS (22.0-34.0); PROTHROMBIN TIME 11.2 SECONDS (9.0-11.5)
[2024-04-29 10:25] LABS: ALBUMIN 3.2 gm/dL (3.4-5.0); BILIRUBIN TOTAL 0.71 mg/dL (0.3-1.2); CALCIUM 9.1 mg/dL (8.5-10.1); CREATININE SERUM 0.88 mg/dL (0.55-1.02); GFR 63.9; POTASSIUM 3.94 mEq/L (3.5-5.1); TOTAL PROTEIN 6.2 gm/dL (6.4-8.2)
[2024-04-29 11:03] LABS: FOLIC ACID > 20.00 ng/ml (4.78-20)
[2024-04-29 11:14] LABS: MANUAL PLATELET COUNT 136
[2024-04-29 11:15] LABS: PLATELET ESTIMATE DECREASED (NORMAL)
== END 2024-04-29 08:35 | disposition home or self-care (01) ==
LOC: LAB 08:34
PROVIDERS: ATTEND Internal Medicine Hematology & Oncology
DX: D50.8 Other iron deficiency anemias (principal); Z80.3 Family history of malignant neoplasm of breast; D51.3 Other dietary vitamin B12 deficiency anemia; D69.2 Other nonthrombocytopenic purpura; K74.69 Other cirrhosis of liver; G62.9 Polyneuropathy, unspecified; D51.1 Vitamin B12 deficiency anemia due to selective vitamin B12 malabsorption with proteinuria; I10 Essential (primary) hypertension; E78.2 Mixed hyperlipidemia; M79.0 Rheumatism, unspecified; E03.8 Other specified hypothyroidism; R97.0 Elevated carcinoembryonic antigen [CEA]; R79.9 Abnormal finding of blood chemistry, unspecified; K76.89 Other specified diseases of liver; R74.02 Elevation of levels of lactic acid dehydrogenase [LDH]; D68.8 Other specified coagulation defects; C25.9 Malignant neoplasm of pancreas, unspecified

== ENCOUNTER 2024-06-18 08:58 | Outpatient (CLI) | payer OTHER | END 2024-06-18 09:11 | disposition home or self-care (01) | LOC: MAMO-SONO 08:58 | PROVIDERS: ATTEND Internal Medicine Hematology & Oncology | DX: N63.0 Unspecified lump in unspecified breast (principal); N64.4 Mastodynia; Z80.3 Family history of malignant neoplasm of breast; D50.8 Other iron deficiency anemias; D51.3 Other dietary vitamin B12 deficiency anemia; D69.2 Other nonthrombocytopenic purpura; K74.69 Other cirrhosis of liver; G62.9 Polyneuropathy, unspecified; D51.1 Vitamin B12 deficiency anemia due to selective vitamin B12 malabsorption with proteinuria; I10 Essential (primary) hypertension; E78.2 Mixed hyperlipidemia; M79.7 Fibromyalgia; E03.8 Other specified hypothyroidism; R97.0 Elevated carcinoembryonic antigen [CEA] ==

== ENCOUNTER 2024-07-01 12:56 | Outpatient (CLI) | payer OTHER | END 2024-07-01 12:57 | disposition home or self-care (01) | LOC: NUCLEAR 12:56 | PROVIDERS: ATTEND Student in an Organized Health Care Education/Training Program | DX: M81.0 Age-related osteoporosis without current pathological fracture (principal) ==

== ENCOUNTER 2024-08-19 15:33 | Emergency (ER) | payer OTHER ==
[~2024-08-19] VITALS: Ht 160 cm; Wt 117.0 kg
[2024-08-19] MEDS ORDERED: MOUNJARO5 MG/0.5 M SQ (15:57)
[2024-08-19] MEDS ORDERED: ZYRTEC10 M3 PO (15:58)
[2024-08-19 15:59] VITALS: BP 150/70; O2SAT 100
[2024-08-19 17:48] LABS: HEMATOCRIT 33.9 % (36.0-45.00); HEMOGLOBIN 11.3 g/dL (12.0-15.00); MEAN CELL VOLUME 91.3 fL (80.00-100.00); MEAN CORPUSCULAR HEMOGLOBIN 30.4 pg (27.00-32.0); MEAN CORPUSCULAR HGB CONC 33.3 g/dl (32.0-36.0); RED BLOOD COUNT 3.71 M/uL (4.00-6.00); RED CELL DISTRIBUTION WIDTH 14.7 % (11.5-14.5)
[2024-08-19 17:52] LABS: PLATELET COUNT 46 K/uL (150-450)
== END 2024-08-19 18:18 | disposition home or self-care (01) ==
LOC: ER 15:36
PROVIDERS: General Practice
DX: J06.9 Acute upper respiratory infection, unspecified (principal); Z88.6 Allergy status to analgesic agent; Z91.018 Allergy to other foods; Z88.0 Allergy status to penicillin; Z20.822 Contact with and (suspected) exposure to COVID-19

== ENCOUNTER → 2024-10-26 08:37 | Outpatient (CLI) | payer OTHER ==
[~2024-10-26 08:37] MED LIST changes: +MOUNJARO5 MG/0.5 M SQ; +ZYRTEC10 M3 PO
[2024-10-26 09:36] LABS: BASO % 0.4 % (0.1-1.2); EOS # 0.12 (0.04-0.54); EOS % 4.9 % (0.7-7.0); HEMATOCRIT 33.7 % (34.1-44.9); HEMOGLOBIN 11.7 g/dL (11.2-15.7); LYMPH # 0.66 (1.18-3.74); LYMPH % 26.7 % (19.3-53.1); MEAN CORPUSCULAR HEMOGLOBIN 30.4 pg (25.6-32.2); MONO # 0.25 (0.24-0.82); MONO % 10.1 % (4.7-12.5); NEUT # 1.42 (1.56-6.13); NEUT % 57.5 % (34.0-71.1); RED BLOOD COUNT 3.85 M/uL (3.93-5.22); RED CELL DISTRIBUTION WIDTH 14.9 % (11.6-14.4)
[2024-10-26 09:41] LABS: PLATELET COUNT 63 K/uL (163-369)
[2024-10-26 09:53] LABS: INR 1.04; PARTIAL THROMBOPLASTIN TIME 27.2 SECONDS (22.0-34.0); PROTHROMBIN TIME 11.3 SECONDS (9.0-11.5)
[2024-10-26 10:10] LABS: % SATURACION 18.7 % (15-50); ALBUMIN 3.1 gm/dL (3.4-5.0); BILIRUBIN TOTAL 0.48 mg/dL (0.3-1.2); CALCIUM 8.8 mg/dL (8.5-10.1); CREATININE SERUM 1.02 mg/dL (0.55-1.02); FERRITIN 87.2 NG/ML (8-252); GFR 53.73; GLOBULINA 3.1 G/DL (2.4-3.5); POTASSIUM 4.21 mEq/L (3.5-5.1); TOTAL PROTEIN 6.2 gm/dL (6.4-8.2)
[2024-10-26 11:43] LABS: COL EPI 116 SECONDS (82-175)
[2024-10-26 14:21] LABS: FOLIC ACID 16.88 ng/ml (4.78-20)
[2024-10-27 09:08] LABS: ALPHA FETO PROTEIN 3.4 ng/mL (0.0-9.2); CA 125 18.4 U/mL (0.0-38.1); CA 15-3 15.8 U/mL (0.0-25.0)
== END | disposition home or self-care (01) ==
LOC: LAB 08:37
PROVIDERS: ATTEND Internal Medicine Hematology & Oncology
DX: Z80.3 Family history of malignant neoplasm of breast (principal); D50.8 Other iron deficiency anemias; D51.3 Other dietary vitamin B12 deficiency anemia; D69.2 Other nonthrombocytopenic purpura; K74.69 Other cirrhosis of liver; G62.9 Polyneuropathy, unspecified; D51.1 Vitamin B12 deficiency anemia due to selective vitamin B12 malabsorption with proteinuria; I10 Essential (primary) hypertension; E78.2 Mixed hyperlipidemia; M79.7 Fibromyalgia; E03.8 Other specified hypothyroidism; R97.0 Elevated carcinoembryonic antigen [CEA]; R79.9 Abnormal finding of blood chemistry, unspecified; R74.02 Elevation of levels of lactic acid dehydrogenase [LDH]; K76.89 Other specified diseases of liver; D68.8 Other specified coagulation defects; D69.1 Qualitative platelet defects; C50.919 Malignant neoplasm of unspecified site of unspecified female breast; R97.8 Other abnormal tumor markers; R97.1 Elevated cancer antigen 125 [CA 125]; R77.2 Abnormality of alphafetoprotein

== ENCOUNTER 2024-12-29 08:00 | Outpatient (CLI) | payer OTHER ==
[2024-12-29 08:45] LABS: BASO % 0.4 % (0.1-1.2); EOS # 0.10 (0.04-0.54); EOS % 4.0 % (0.7-7.0); LYMPH # 0.81 (1.18-3.74); LYMPH % 32.1 % (19.3-53.1); MEAN PLATELET VOLUME 12.10 fl (9.4-12.4); MONO # 0.21 (0.24-0.82); MONO % 8.3 % (4.7-12.5); NEUT # 1.38 (1.56-6.13); NEUT % 54.8 % (34.0-71.1); RED CELL DISTRIBUTION WIDTH 14.7 % (11.6-14.4)
[2024-12-29 09:35] LABS: ALT/SGPT 28.0 U/L (12-78); AST/SGOT 31.0 U/L (15-37); BILIRUBIN TOTAL 0.7 mg/dL (0.3-1.2); BUN CREA RATIO 20.0 (7.0-25.0); CHOL HDL RATIO 2.3 (0-5.0); CREATININE SERUM 1.33 mg/dL (0.55-1.02); GFR 39.56; GLOBULINA 2.9 G/DL (2.4-3.5); GLUCOSE FASTING 96.0 mg/dL (65-100); HDL 52.0 mg/dl (40-60); LDL 42.0 mg/dl (0-130); OSMOLALITY SERUM 294.0 MOSM/KG (275-295); VLDL 26.0 (0-39)
== END 2024-12-29 08:03 | disposition home or self-care (01) ==
LOC: LAB 08:00
PROVIDERS: ATTEND Internal Medicine
DX: D64.9 Anemia, unspecified (principal); R10.9 Unspecified abdominal pain; E03.9 Hypothyroidism, unspecified; R80.9 Proteinuria, unspecified; E11.9 Type 2 diabetes mellitus without complications

== ENCOUNTER → 2025-04-23 08:00 | Outpatient (CLI) | payer OTHER ==
[2025-04-23 08:55] LABS: BASO % 0.5 % (0.1-1.2); EOS # 0.07 (0.04-0.54); EOS % 3.3 % (0.7-7.0); LYMPH # 0.58 (1.18-3.74); LYMPH % 27.6 % (19.3-53.1); MEAN PLATELET VOLUME 11.50 fl (9.4-12.4); MONO # 0.21 (0.24-0.82); MONO % 10.0 % (4.7-12.5); NEUT # 1.22 (1.56-6.13); NEUT % 58.1 % (34.0-71.1); RED CELL DISTRIBUTION WIDTH 13.6 % (11.6-14.4)
[2025-04-23 09:13] LABS: URINE APPEARANCE Clear; URINE BILIRRUBIN Negative (NEGATIVE); URINE BLOOD Negative; URINE COLOR Yellow; URINE GLUCOSE Negative (NEGATIVE); URINE KETONE Negative (NEGATIVE); URINE LEUKOCYTE Negative; URINE NITRATE Negative; URINE PROTEIN Negative (NEGATIVE); URINE UROBILINOGEN 0.2 E.U./dl
[2025-04-23 09:16] LABS: URINE BACTERIA 24.0 uL (0.0-1933); URINE EPITHELIAL CELLS 16.5 uL (0.0-38.8); URINE RBC 4.6 uL (0.0-20.8); URINE WBC 8.2 uL (0.0-23.2)
[2025-04-23 09:17] LABS: INR 1.07
[2025-04-23 09:19] LABS: URINE CAST 0.00 uL (0.0-1.40)
[2025-04-23 09:22] LABS: CREATININE URINE RANDOM 129.0 MG/DL (30-125)
[2025-04-23 09:58] LABS: % SATURACION 19.4 % (15-50); ALT/SGPT 27.0 U/L (12-78); AST/SGOT 32.0 U/L (15-37); BILIRUBIN TOTAL 0.88 mg/dL (0.3-1.2); BUN CREA RATIO 15.0 (7.0-25.0); CHOL HDL RATIO 2.1 (0-5.0); CREATININE SERUM 1.06 mg/dL (0.55-1.02); FE 59.0 ug/dl (50-170); GFR 51.4; GLOBULINA 3.0 G/DL (2.4-3.5); GLUCOSE FASTING 112.0 mg/dL (65-100); HDL 54.0 mg/dl (40-60); LDH 219.0 U/L (84-246); LDL 43.0 mg/dl (0-130); OSMOLALITY SERUM 292.0 MOSM/KG (275-295); VLDL 19.0 (0-39)
[2025-04-23 10:04] LABS: COL EPI 74 SECONDS (82-175)
[2025-04-23 10:10] LABS: MANUAL PLATELET COUNT 77
[2025-04-23 13:25] LABS: FOLIC ACID > 20.00 ng/ml (4.78-20); VITAMIN D3 25 HYDROXY 45.27 ng/ml (30-120)
[2025-04-24 06:06] LABS: CA 125 17.3 U/mL (0.0-38.1); CA 15-3 16.2 U/mL (0.0-25.0); CA 19-9 33.0 U/mL (0-35)
== END | disposition home or self-care (01) ==
LOC: LAB 08:00
PROVIDERS: ATTEND Internal Medicine Hematology & Oncology
DX: D50.8 Other iron deficiency anemias (principal); R79.9 Abnormal finding of blood chemistry, unspecified; I10 Essential (primary) hypertension; R74.02 Elevation of levels of lactic acid dehydrogenase [LDH]; K76.89 Other specified diseases of liver; Z80.3 Family history of malignant neoplasm of breast; D51.3 Other dietary vitamin B12 deficiency anemia; D69.2 Other nonthrombocytopenic purpura; D51.1 Vitamin B12 deficiency anemia due to selective vitamin B12 malabsorption with proteinuria; E78.2 Mixed hyperlipidemia; M79.7 Fibromyalgia; E03.8 Other specified hypothyroidism; R97.0 Elevated carcinoembryonic antigen [CEA]; N18.2 Chronic kidney disease, stage 2 (mild); E11.21 Type 2 diabetes mellitus with diabetic nephropathy; R80.9 Proteinuria, unspecified; E78.00 Pure hypercholesterolemia, unspecified; D68.8 Other specified coagulation defects; C50.919 Malignant neoplasm of unspecified site of unspecified female breast

== ENCOUNTER 2025-05-03 11:17 | Outpatient (CLI) | payer OTHER | END 2025-05-03 11:24 | disposition home or self-care (01) | LOC: RAD 11:17 | DX: M16.11 Unilateral primary osteoarthritis, right hip (principal); Z96.642 Presence of left artificial hip joint; M17.12 Unilateral primary osteoarthritis, left knee; Z96.651 Presence of right artificial knee joint ==